=== PATIENT | female | born 1980 | race African-American/Black ===

== ENCOUNTER 2017-02-15 17:14 | Emergency (ER) | payer BC ==
--- NOTE | 2017-02-15 17:31 | ER Document Report ---
ED Medical Screen (RME) - General Stated Complaint: CHEST PAIN Mode of Arrival: Ambulatory Information source: Patient Notes: Patient reports chest pain that started around 3 PM today. Patient states pain does radiate left-sided pain. Patient denies any nausea, vomiting, or shortness of breath. No cough or cold symptoms. Patient states earlier today she did take nitroglycerin and it did help her chest pain symptoms. hx: Hypertension I have greeted and performed a rapid initial assessment of this patient. A comprehensive ED assessment and evaluation of the patient, analysis of test results and completion of the medical decision making process will be conducted by additional ED providers. TRAVEL OUTSIDE OF THE [place] IN LAST 30 DAYS: No - Related Data Allergies/Adverse Reactions: No Known Allergies Allergy (Verified 02/15/17 17:28) Past Medical History - Past Medical History Cardiac Medical History: Reports: Hx Hypertension - Immunizations Hx Diphtheria, Pertussis, Tetanus Vaccination: Yes Physical Exam - Cardiovascular Rhythm: Regular Heart sounds: S1 appreciated, S2 appreciated Murmur: No
[2017-02-15 17:53] LABS: ABSOLUTE EOSINOPHILS # (AUTO) 0.2 10^3/uL (0.0-0.6); ABSOLUTE LYMPHOCYTES (AUTO) 2.9 10^3/uL (0.5-4.7); ABSOLUTE MONOCYTES (AUTO) 0.5 10^3/uL (0.1-1.4); ABSOLUTE NEUT (AUTO) 2.1 10^3/uL (1.7-8.2); BASOPHILS % (AUTO) 0.4 % (0-2); EOSINOPHILS % (AUTO) 3.1 % (0-6); HEMATOCRIT 37.4 % (36.0-47.0); HEMOGLOBIN 12.3 g/dL (12.0-15.5); HGB HCT DIFFERENCE -0.5; LYMPHOCYTES % (AUTO) 51.7 % (13-45); MEAN CORPUSCULAR HEMOGLOBIN 29.4 pg (27.0-33.4); MEAN CORPUSCULAR HGB CONC 32.8 g/dL (32.0-36.0); MEAN CORPUSCULAR VOLUME 90 fl (80-97); MONOCYTES % (AUTO) 8.1 % (3-13); RED BLOOD COUNT 4.18 10^6/uL (3.72-5.28); RED CELL DISTRIBUTION WIDTH 13.5 % (11.5-14.0); SEGMENTED NEUTROPHILS % (AUTO) 36.7 % (42-78); WHITE BLOOD COUNT 5.6 10^3/uL (4.0-10.5)
[2017-02-15 18:10] LABS: ALANINE AMINOTRANSFERASE 28 U/L (9-52); ALBUMIN 4.4 g/dL (3.5-5.0); ALKALINE PHOSPHATASE 70 U/L (38-126); ANION GAP 12 (5-19); ASPARTATE AMINO TRANSFERASE 27 U/L (14-36); BILIRUBIN,TOTAL 0.4 mg/dL (0.2-1.3); BLOOD UREA NITROGEN 17 mg/dL (7-20); CALCIUM 10.3 mg/dL (8.4-10.2); CARBON DIOXIDE 28 mmol/L (22-30); CHLORIDE 104 mmol/L (98-107); CREATINE KINASE 176 U/L (30-135); CREATININE RESULT 1.02 mg/dL (0.52-1.25); GLUCOSE 92 mg/dL (75-110); LIPASE 52.2 U/L (23-300); MAGNESIUM 2.1 mg/dL (1.6-2.3); POTASSIUM 4.3 mmol/L (3.6-5.0); SODIUM 144.3 mmol/L (137-145); TOTAL PROTEIN 7.2 g/dL (6.3-8.2)
[2017-02-15 18:20] LABS: CREATINE KINASE MB 0.66 ng/mL (<4.55)
[2017-02-15 18:23] LABS: TROPONIN I < 0.012 ng/mL
--- NOTE | 2017-02-15 19:11 | EKG REPORT ---
SEVERITY:- NORMAL ECG - SINUS RHYTHM : Confirmed by: Ruddy Appiah MD 15-Feb-2017 19:11:01
--- NOTE | 2017-02-15 19:29 | ER Document Report ---
ED Cardiac - General Chief Complaint: Chest Pain > 30 Stated Complaint: CHEST PAIN Time seen by provider: 19:25 Mode of Arrival: Ambulatory Notes: Patient is a 36-year-old female that comes emergency department for chief complaint of chest pain on the left side of her chest which was mild and felt like a pressure that started about 3 PM, she states it seemed to go across the left side of her chest. She denies nausea, vomiting, cough, shortness of breath , denies fever or recent illness. She states she has been having chest pains intermittently for several weeks, states that she got at the other day for running, she states at that point she was seen by her primary care provider, had an EKG, given nitroglycerin, told comes emergency department if she had chest pain again. She has not had a stress test or echocardiogram. She has past medical history of hypertension, takes Norvasc, denies smoking, denies any other medical history, denies family history of cardiac disease. She states she did take nitroglycerin, states afterwards she felt improved and now she has no complaints. Patient already took 4 baby aspirin. TRAVEL OUTSIDE OF THE [place] IN LAST 30 DAYS: No - Related Data Allergies/Adverse Reactions: No Known Allergies Allergy (Verified 02/15/17 17:28) Past Medical History - General Information source: Patient - Social History Smoking Status: Never Smoker Chew tobacco use (# tins/day): No Frequency of alcohol use: Rare Drug Abuse: None Lives with: Family Family History: Reviewed & Not Pertinent Patient has suicidal ideation: No Patient has homicidal ideation: No - Past Medical History Cardiac Medical History: Reports: Hx Hypertension Renal/ Medical History: Denies: Hx Peritoneal Dialysis Surgical Hx: Negative - Immunizations Hx Diphtheria, Pertussis, Tetanus Vaccination: Yes Review of Systems - Review of Systems Constitutional: No symptoms reported EENT: No symptoms reported Cardiovascular: See HPI Respiratory: No symptoms reported Gastrointestinal: No symptoms reported Genitourinary: No symptoms reported Female Genitourinary: No symptoms reported Musculoskeletal: See HPI Skin: No symptoms reported Hematologic/Lymphatic: No symptoms reported Neurological/Psychological: No symptoms reported Physical Exam - Vital signs Vitals: Resp Pulse Ox 25 H 100 02/15/17 19:21 02/15/17 19:21 Interpretation: Normal - General General appearance: Appears well In distress: None - alert, conversational, very well appearing - HEENT Head: Normocephalic, Atraumatic Eyes: Normal Conjunctiva: Normal Extraocular movements intact: Yes Eyelashes: Normal Pupils: PERRL Sinus: Normal Nasal: Normal Mouth/Lips: Normal Mucous membranes: Normal Pharynx: Normal Neck: Normal - Respiratory Respiratory status: No respiratory distress Chest status: Tender - There is reproducible mid anterior chest wall tenderness on the left side only, otherwise no abnormalities noted Breath sounds: Normal. No: Decreased air movement, Wheezing Chest palpation: Normal - Cardiovascular Rhythm: Regular. No: Tachycardia Heart sounds: Normal auscultation, S1 appreciated, S2 appreciated Murmur: No - Abdominal Inspection: Normal Distension: No distension Bowel sounds: Normal Tenderness: Nontender. No: Tender Organomegaly: No organomegaly - Back Back: Normal, Nontender - Extremities General upper extremity: Normal inspection, Nontender, Normal color, Normal ROM , Normal temperature General lower extremity: Normal inspection, Nontender, Normal color, Normal ROM , Normal temperature, Normal weight bearing. No: Jorge Luis's sign - Neurological Neuro grossly intact: Yes Cognition: Normal Orientation: AAOx4 Marifer Coma Scale Eye Opening: Spontaneous Marifer Coma Scale Verbal: Oriented Marifer Coma Scale Motor: Obeys Commands Marifer Coma Scale Total: 15 Speech: Normal Motor strength normal: LUE, RUE, LLE, RLE Sensory: Normal - Psychological Associated symptoms: Normal affect, Normal mood - Skin Skin Temperature: Warm Skin Moisture: Dry Skin Color: Normal Course - Re-evaluation Re-evalutation: Patient with left-sided chest wall pain on examination which patient stopped reporting was bothering her but still is reproducible on examination. Patient had taken 4 baby aspirins. EKG showing sinus rhythm with flattened T waves in lead III, no changes from prior EKG, no ST segment changes or T-wave inversions in consecutive leads. Chest x-ray unremarkable, CBC, chemistry unremarkable except for very mildly elevated CK. 2 sets of negative troponins. Patient's heart score is 1, patient has history of hypertension, no smoking, family history, or other abnormalities. Patient is also very young at the age of 36. Patient in addition to this are he has a stress test scheduled for the coming Sunday which is in about 3 days. Discussed all findings with patient in detail, recommended patient follow-up with her stress test planned and to return for any concerns concerning symptoms which were discussed. Patient states understanding and agreement. - Vital Signs Vital signs: Temp Pulse Resp BP Pulse Ox 18 116/74 98 02/15/17 23:01 02/15/17 23:01 02/15/17 23:01 - Laboratory Result Diagrams: 02/15/17 17:35 02/15/17 17:35 Laboratory results interpreted by me: 02/15/17 02/15/17 17:35 17:35 Seg Neutrophils % 36.7 L Lymphocytes % 51.7 H Calcium 10.3 H Creatine Kinase 176 H Discharge - Discharge Clinical Impression: Chest wall pain Chest pain Qualifiers: Chest pain type: unspecified Qualified Code(s): R07.9 - Chest pain, unspecified Condition: Stable Disposition: HOME, SELF-CARE Additional Instructions: Your workup today is normal. At this time it appears the chest pain is from your chest wall, however please follow-up for your stress test and additional evaluation by cardiology as planned. Apply heat to your chest wall, consider [id number] anti-inflammatories. Return to the emergency department for any concerning or worsening symptoms. Forms: Return to Work Referrals: LOKESH NICHOLAS MD [Primary Care Provider] - Follow up as needed
[2017-02-15 23:12] VITALS: BP 116/74
== END 2017-02-15 23:19 | disposition home or self-care (01) ==
LOC: ER 17:14
DX: R07.89 Other chest pain (principal); I10 Essential (primary) hypertension; Z79.899 Other long term (current) drug therapy
CPT/HCPCS: 36415; 71020; 80053; 82550; 82553; 83690; 83735; 84484; 84703; 85025; 93005; 93010; 99285

== ENCOUNTER → 2017-02-19 | Outpatient (CLI) | payer BC ==
[~2017-02-19] MED LIST: NITROGLYCERIN 0.4 MG/TAB 25 TAB/BOTTLE ONE
--- NOTE | 2017-02-19 22:09 | DRAGON STRESS TEST REPORT ---
Exercise EKG treadmill stress test. Data procedure: 02/19/2017 Ordering Provider: Dr. Prajapati. Indication: Chest pain Coronary risk factors:. Hypertension. Significant physical findings prior to stress testing show a blood pressure of 122/81 and a heart rate of 76 beat per minute. Auscultation of the heart shows normal S1 and S2.NoS3 or S4 gallops. Systolic murmur in the left sternal border and apex. Lungs are clear to auscultation and percussion. Resting 12-lead EKG:. Sinus Rhythm. Within Normal Limits. Procedure: The patient was excised on a standard Leandro protocol. . The patient walked a total of 7 minutes and 00 seconds on this protocol and reached a 157 peak heart rate of beats per minute, which is of 86% of maximum predicted heart rate for age. This is at a workload of 8 METS. The test was stopped because of chest pain/discomfort, and EKG changes of ischemia. The patient described symptoms of chest pain/discomfort beginning 4 minutes and 6 seconds at a heart rate of 134 into exercise. This was on a scale of 1/5. This increased at 4 minutes and 30 seconds and a heart rate of 142 on a scale of 2/5 ., and the chest discomfort persisted at peak exercise, and ipatient had a discomfort of 2/5 scale. This persisted into recovery for about 2 minutes and 13 seconds. This discomfort totally resolved within a few minutes of 0.4 mg of one sublingual nitroglycerin tablet. Note that the patient had ST segment changes also. Exercise EKG's show:. There was 1-[address] segment depression along with the patient's chest pain/pressure/discomfort in multiple leads, which resolved after 1.5 minutes of recovery stage, but the patient continued to have these symptoms as mentioned above. The ST segment depression, and chest symptoms completely resolved with one sublingual nitroglycerin Arrhythmias seen:None. The blood pressure response was normal At peak exercise the blood pressure was 161/74 millimeters of Hg. The double product was 25.2 K. Summary of findings and interpretation: 1. The patient's clinical symptoms chest pain or chest discomfort symptoms reproduced. 2. There is 1-[address] segment depression which persisted for at least 1.5 minutes in the recovery with, EKG evidence of ischemia in the form of ST segment depression. 3. Normal blood pressure response. 4. No arrhythmias seen. 5. Good exercise tolerance, good aerobic capacity. Diagnostic treadmill stress test positive for ischemia by EKG criteria. Recommendations: 1.Recommend treatment with aspirin, beta blockers, nitrates, and statins if no contraindication 2.strongly recommend cardia catheterization to make sure the patient has no significant coronary artery disease. 3.Aggressive risk factor modification, and treatment of underlying co- morbidities. MTDD
== END ==
LOC: SP 08:37
PROVIDERS: ATTEND Nurse Practitioner Psychiatric/Mental Health
DX: R07.9 Chest pain, unspecified (principal)
CPT/HCPCS: 93017

== ENCOUNTER → 2017-04-25 | Outpatient (CLI) | payer BC ==
[2017-04-25 08:12] LABS: ABSOLUTE EOSINOPHILS # (AUTO) 0.1 10^3/uL (0.0-0.6); ABSOLUTE LYMPHOCYTES (AUTO) 1.9 10^3/uL (0.5-4.7); ABSOLUTE MONOCYTES (AUTO) 0.4 10^3/uL (0.1-1.4); BASOPHILS % (AUTO) 0.7 % (0-2); EOSINOPHILS % (AUTO) 2.2 % (0-6); HEMATOCRIT 37.1 % (36.0-47.0); HGB HCT DIFFERENCE -1.1; LYMPHOCYTES % (AUTO) 42.9 % (13-45); MEAN CORPUSCULAR HEMOGLOBIN 29.6 pg (27.0-33.4); MEAN CORPUSCULAR HGB CONC 32.5 g/dL (32.0-36.0); MEAN CORPUSCULAR VOLUME 91 fl (80-97); MONOCYTES % (AUTO) 9.1 % (3-13); RED BLOOD COUNT 4.08 10^6/uL (3.72-5.28); RED CELL DISTRIBUTION WIDTH 13.7 % (11.5-14.0); SEGMENTED NEUTROPHILS % (AUTO) 45.1 % (42-78); WHITE BLOOD COUNT 4.4 10^3/uL (4.0-10.5)
== END ==
LOC: LAB 08:01
PROVIDERS: ATTEND Internal Medicine Geriatric Medicine
DX: I10 Essential (primary) hypertension (principal)
CPT/HCPCS: 36415; 85025

== ENCOUNTER 2017-12-31 09:23 | Emergency (ER) | payer BC ==
[2017-12-31] MEDS ORDERED: ASPIRIN 325 MG TABLET PO ONE (09:51)
--- NOTE | 2017-12-31 09:52 | EKG REPORT ---
SEVERITY:- NORMAL ECG - SINUS RHYTHM : Confirmed by: Shanell Breen 31-Dec-2017 09:51:39
--- NOTE | 2017-12-31 09:52 | ER Document Report ---
ED Medical Screen (RME) - General Chief Complaint: Chest Pain Stated Complaint: CHEST PAIN Time Seen by Provider: 12/31/17 09:51 Notes: Patient presents with intermittent chest pain for the last several days. She states one year ago she had a cardiac cath and everything was "clean". She states she has had no significant cough or shortness of breath. She has had some radiation of the pain to her left arm and her jaw. She states she took nitro yesterday and this made the pain go away but she has not taken any nitroglycerin today. She has not taken aspirin yet today. TRAVEL OUTSIDE OF THE [place] IN LAST 30 DAYS: No - Related Data Allergies/Adverse Reactions: No Known Allergies Allergy (Verified 02/15/17 17:28) Past Medical History - Social History Frequency of alcohol use: None Drug Abuse: None - Past Medical History Cardiac Medical History: Reports: Hx Hypertension Pulmonary Medical History: Reports: Hx Asthma - exercise induced Renal/ Medical History: Denies: Hx Peritoneal Dialysis - Immunizations Hx Diphtheria, Pertussis, Tetanus Vaccination: Yes Physical Exam - Vital signs Vitals: Temp Pulse Resp BP Pulse Ox 97.7 F 72 18 133/92 H 100 12/31/17 09:41 12/31/17 09:41 12/31/17 09:41 12/31/17 09:41 12/31/17 09:41 Course - Vital Signs Vital signs: Temp Pulse Resp BP Pulse Ox 97.7 F 72 18 133/92 H 100 12/31/17 09:41 12/31/17 09:41 12/31/17 09:41 12/31/17 09:41 12/31/17 09:41
[2017-12-31] MEDS: NITROGLYCERIN 0.4 MG/TAB 25 TAB/BOTTLE SL PRN ×2 (10:08→10:19)
--- NOTE | 2017-12-31 10:17 | ER Document Report ---
ED Cardiac - General Chief Complaint: Chest Pain Stated Complaint: CHEST PAIN Time Seen by Provider: 12/31/17 09:51 TRAVEL OUTSIDE OF THE [place] IN LAST 30 DAYS: No - HPI Patient complains to provider of: Chest pain - Chest pain intermittent for last several days. With radiation to her left arm. Patient has history of cardiac catheterization that was "clean" last year. Denies all other associated symptoms. - Related Data Allergies/Adverse Reactions: No Known Allergies Allergy (Verified 02/15/17 17:28) Past Medical History - Social History Smoking Status: Never Smoker Frequency of alcohol use: None Drug Abuse: None Family History: Reviewed & Not Pertinent Patient has suicidal ideation: No Patient has homicidal ideation: No - Past Medical History Cardiac Medical History: Reports: Hx Hypertension Pulmonary Medical History: Reports: Hx Asthma - exercise induced Renal/ Medical History: Denies: Hx Peritoneal Dialysis - Immunizations Hx Diphtheria, Pertussis, Tetanus Vaccination: Yes Review of Systems - Review of Systems Constitutional: No symptoms reported EENT: No symptoms reported Cardiovascular: Chest pain Respiratory: No symptoms reported Gastrointestinal: No symptoms reported Genitourinary: No symptoms reported Female Genitourinary: No symptoms reported Musculoskeletal: No symptoms reported Skin: No symptoms reported Hematologic/Lymphatic: No symptoms reported Neurological/Psychological: No symptoms reported Physical Exam - Vital signs Vitals: Temp Pulse Resp BP Pulse Ox 97.7 F 72 18 133/92 H 100 12/31/17 09:41 12/31/17 09:41 12/31/17 09:41 12/31/17 09:41 12/31/17 09:41 Interpretation: Normal - General General appearance: Appears well, Alert - HEENT Head: Normocephalic, Atraumatic Eyes: Normal Pupils: PERRL - Respiratory Respiratory status: No respiratory distress Chest status: Nontender Breath sounds: Normal Chest palpation: Normal - Cardiovascular Rhythm: Regular Heart sounds: Normal auscultation Murmur: No - Abdominal Inspection: Normal Distension: No distension Bowel sounds: Normal Tenderness: Nontender Organomegaly: No organomegaly - Back Back: Normal, Nontender - Extremities General upper extremity: Normal inspection, Nontender, Normal color, Normal ROM , Normal temperature General lower extremity: Normal inspection, Nontender, Normal color, Normal ROM , Normal temperature, Normal weight bearing. No: Jorge Luis's sign - Neurological Neuro grossly intact: Yes Cognition: Normal Orientation: AAOx4 Marifer Coma Scale Eye Opening: Spontaneous Marifer Coma Scale Verbal: Oriented Marifer Coma Scale Motor: Obeys Commands Marifer Coma Scale Total: 15 Speech: Normal Motor strength normal: LUE, RUE, LLE, RLE Sensory: Normal - Psychological Associated symptoms: Normal affect, Normal mood - Skin Skin Temperature: Warm Skin Moisture: Dry Skin Color: Normal Course - Re-evaluation Re-evalutation: 12/31/17 11:05 Well-appearing female in no acute distress. Chest pain. Will February 2017 patient had extensive cardiac workup including cardiac catheterization, stress test. All were negative at that time. 12/31/17 11:55 Well-appearing female presents negative cardiac workup in the department. Will give referral to crisis counselor. Return if anything changes - Vital Signs Vital signs: Temp Pulse Resp BP Pulse Ox 97.7 F 72 13 128/87 H 100 12/31/17 09:41 12/31/17 09:41 12/31/17 10:46 12/31/17 10:46 12/31/17 10:46 - Laboratory Result Diagrams: 12/31/17 10:18 12/31/17 10:18 Laboratory results interpreted by me: 12/31/17 10:18 WBC 3.7 L - EKG Interpretation by Me Additional EKG results interpreted by me: 12/31/17 10:17 Normal sinus rhythm, 69 bpm, normal IL, normal QRS, no ST elevations or depressions. Discharge - Discharge Clinical Impression: Chest pain Qualifiers: Chest pain type: other chest pain Qualified Code(s): R07.89 - Other chest pain ; R07.8 - Other chest pain Condition: Stable Disposition: HOME, SELF-CARE Instructions: Chest Pain of Unclear Cause ([facility]) Referrals: LOKESH NICHOLAS MD [Primary Care Provider] - Follow up as needed ANGEL ORTIZ MD [ACTIVE STAFF] - Follow up as needed
[2017-12-31 10:46] LABS: ABSOLUTE EOSINOPHILS # (AUTO) 0.1 10^3/uL (0.0-0.6); ABSOLUTE LYMPHOCYTES (AUTO) 1.6 10^3/uL (0.5-4.7); ABSOLUTE MONOCYTES (AUTO) 0.3 10^3/uL (0.1-1.4); ABSOLUTE NEUT (AUTO) 1.8 10^3/uL (1.7-8.2); BASOPHILS % (AUTO) 0.5 % (0-2); EOSINOPHILS % (AUTO) 1.8 % (0-6); HEMATOCRIT 37.9 % (36.0-47.0); HEMOGLOBIN 12.6 g/dL (12.0-15.5); LYMPHOCYTES % (AUTO) 42.2 % (13-45); MEAN CORPUSCULAR HEMOGLOBIN 29.9 pg (27.0-33.4); MEAN CORPUSCULAR HGB CONC 33.2 g/dL (32.0-36.0); MEAN CORPUSCULAR VOLUME 90 fl (80-97); MONOCYTES % (AUTO) 7.1 % (3-13); PLATELET COUNT 197 10^3/uL (150-450); RED BLOOD COUNT 4.21 10^6/uL (3.72-5.28); RED CELL DISTRIBUTION WIDTH 13.3 % (11.5-14.0); SEGMENTED NEUTROPHILS % (AUTO) 48.4 % (42-78); TOTAL CELLS COUNTED % (AUTO) 100 %; WHITE BLOOD COUNT 3.7 10^3/uL (4.0-10.5)
[2017-12-31 11:10] LABS: ALANINE AMINOTRANSFERASE 27 U/L (9-52); ALBUMIN 4.4 g/dL (3.5-5.0); ALKALINE PHOSPHATASE 70 U/L (38-126); ANION GAP 9 (5-19); ASPARTATE AMINO TRANSFERASE 29 U/L (14-36); BILIRUBIN,DIRECT 0.3 mg/dL (0.0-0.4); BILIRUBIN,TOTAL 0.5 mg/dL (0.2-1.3); BLOOD UREA NITROGEN 14 mg/dL (7-20); CALCIUM 10.2 mg/dL (8.4-10.2); CARBON DIOXIDE 28 mmol/L (22-30); CHLORIDE 105 mmol/L (98-107); GLUCOSE 91 mg/dL (75-110); POTASSIUM 3.9 mmol/L (3.6-5.0); SODIUM 142.3 mmol/L (137-145); TOTAL PROTEIN 7.2 g/dL (6.3-8.2)
[2017-12-31 12:08] VITALS: BP 143/87
== END 2017-12-31 12:08 | disposition home or self-care (01) ==
LOC: ER 09:23
DX: R07.89 Other chest pain (principal); M79.602 Pain in left arm
CPT/HCPCS: 36415; 80053; 84484; 85025; 93005; 93010; 99285

== ENCOUNTER → 2018-05-22 | Outpatient (CLI) | payer BC ==
--- NOTE | 2018-05-22 15:34 | WOMENS IMAGING REPORT ---
EXAM DESCRIPTION: 3D DIAG MAMMO BILAT NO CHG; U/S BREAST UNILAT LIMITED COMPLETED DATE/TIME: 05/22/2018 9:43 am; 05/22/2018 10:10 am REASON FOR STUDY: UNSPECIFIED LUMP; N63.21; BREAST LUMP;N63 N63.21 UNSPECIFIED LUMP IN THE LEFT TERESO AST, UPPER OUTER QUAD; N63.0 UNSPECIFIED LUMP IN UNSPECIFIED BREAST COMPARISON: 10/03/2012 TECHNIQUE: Standard craniocaudal and mediolateral oblique views of each breast recorded using digita l acquisition and breast tomosynthesis. Additional cone compression tomosynthesis in the left breast mediolateral orientation. Left breast ultrasound was also performed. LIMITATIONS: None. FINDINGS: RIGHT BREAST MASSES: No suspicious masses. CALCIFICATIONS: No new or suspicious calcifications. ARCHITECTURAL DISTORTION: None. DEVELOPING DENSITY: None. ASYMMETRY: None noted. OTHER: No other significant findings. LEFT BREAST MASSES: No suspicious masses. CALCIFICATIONS: No new or suspicious calcifications. ARCHITECTURAL DISTORTION: None. DEVELOPING DENSITY: None. ASYMMETRY: None noted. OTHER: No other significant finding. Read with the assistance of CAD: .[facility] - R2 Cenova Version 1.3 .[facility] Imaging - R2 Cenova Version 1.3 .[facility] Imaging - R2 Cenova Version 2.4 .[facility] - R2 Cenova Version 2.4 .[facility] - R2 Adult Psychiatrist Version 9.2 Left breast ultrasound: Ultrasound was performed in the area of palpable tender abnormality in the left breast 1 to 2 o'clock position far laterally. In this area, a thrombosed superficial chest wall varicosity is present, li jon indicating Mondor's disease. Also at left breast ultrasound in the upper outer quadrant at the 1 to 2 o'clock position, a 2 x 1.1 x 0.8 cm breast cyst is present. In the left breast laterally at the 3 o'clock position, a 1.2 x 0.6 x 1.9 cm cyst is present. IMPRESSION: No mammographic evidence for malignancy right breast. No mammographic or sonographic evidence for malignancy left breast. 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 BREAST DENSITY: c. The breasts are heterogeneously dense, which may obscure small masses. BIRAD: 2 Benign findings. RECOMMENDATION: RECOMMENDED FOLLOW UP: Clinical follow-up for left breast/chest wall pain. Otherwis e, please continue yearly bilateral screening tomosynthesis in April 2019. SPECIFIC INTERVENTION/IMAGING/CONSULTATION RECOMMENDED:No additional intervention/ imaging/consultati on needed at this time. COMMUNICATION:Patient notified by letter COMMENT: The patient has been notified of the results by letter per SA requirements. Additional no tification policies are in place for contacting patient with suspicious or incomplete findings. Quality ID #[id number]: The [employer] recommends an annual screening mammogram for women aged 40 years or over. This facility utilizes a reminder system to ensure that all patients receive reminder letters, and/or direct phone calls for appointments. This includes reminders for routine scr eening mammograms, diagnostic mammograms, or other Breast Imaging Interventions when appropriate. Th is patient will be placed in the appropriate reminder system. The [employer] (ACR) has developed recommendations for screening MRI of the breast s in certain patient populations, to be used in conjunction with mammography. Breast MRI surveillanc e may be appropriate for women with more than 20% lifetime risk of developing breast cancer as deter mined by genetic testing, significant family history of the disease, or history of mantle radiation f or Hodgkins Disease. ACR Practice Guidelines 2008. DBT Technology DBT is a type of tomographic mammography. With conventional mammography, overlapping breast tissue ma y make lesions difficult to detect, even with good compression. DBT uses an x-ray tube that rotates a round the breast, taking images at different angles. These images are then combined to create thin sl ices of the breast that the radiologist can view as a 3D reconstruction. The [employer] unit can perform full-field digital mammograms (2D imaging); or DBT (3D imaging); or both, in a combination mode that quickly performs both the mammogram and the tomosynthesis scan while the breast is still compressed. PQRS 6045F: Fluoroscopic imaging is not utilized for breast tomosynthesis. TECHNICAL DOCUMENTATION: FINDING NUMBER: (1) ASSESSMENT: (1) JOB ID: [id number] [employer]- All Rights Reserved Reading location - IP/workstation name: [email or web address]
== END ==
LOC: WI 07:03
PROVIDERS: ATTEND Obstetrics & Gynecology
DX: N60.02 Solitary cyst of left breast (principal)
CPT/HCPCS: 76642

== ENCOUNTER → 2018-11-04 | Outpatient (CLI) | payer BC ==
[2018-11-04 08:51] LABS: CHOLESTEROL 146.16 mg/dL (0-200); TRIGLYCERIDES 33 mg/dL (<150)
[2018-11-04 09:02] LABS: DIRECT LDL 74 mg/dL (<100)
== END ==
LOC: LAB 07:49
PROVIDERS: ATTEND Internal Medicine Geriatric Medicine
DX: I10 Essential (primary) hypertension (principal)
CPT/HCPCS: 36415; 80061

== ENCOUNTER 2019-03-03 09:02 | Day surgery (SDC) | payer BC ==
[~2019-03-03 09:02] MED LIST changes: -NITROGLYCERIN 0.4 MG/TAB 25 TAB/BOTTLE ONE; +PROPOFOL INJ 200 MG/20 ML VIAL IV ONE
[2019-03-03 10:40] VITALS: BP 130/72
[2019-03-03] MEDS ORDERED: PROPOFOL INJ 200 MG/20 ML VIAL IV ONE (11:47)
--- NOTE | 2019-03-03 12:43 | Operative Report ---
Operative Report DATE OF SURGERY: 03/03/19 Operative Report: The risks, benefits and alternatives of the procedure including the risk of bleeding, perforation requiring surgery have been explained to the patient in detail and informed consent has been obtained. The patient is placed in the left, lateral decubital position. Timeout was called. Propofol medication is administered. A rectal examination is done which did not reveal any masses, tears or fissures. An Olympus videoscope was introduced into the patient's rectum. The scope was then carefully advanced all the way to the cecum. The cecum was identified by the usual anatomical landmarks including the ileocecal valve as well as the appendiceal office. Photodocumentation is obtained. The scope was then sequentially pulled back via the various segments of the colon including the ascending colon, hepatic flexure, transverse colon, splenic flexure, descending colon and finally into the rectosigmoid portions of the colon. Retroflexion maneuver was performed. PREOPERATIVE DIAGNOSIS: Colorectal cancer screening POSTOPERATIVE DIAGNOSIS: Normal screening colonoscopy OPERATION: Diagnostic colonoscopy SURGEON: DANIELLE MUNSON ANESTHESIA: LMAC TISSUE REMOVED OR ALTERED: None. COMPLICATIONS: None. ESTIMATED BLOOD LOSS: None. INTRAOPERATIVE FINDINGS: As noted above. PROCEDURE: Patient tolerated the procedure well. No immediate postprocedure complications are noted. Patient discharged in good condition. Discharge date 03/03/2019. Discharge diet: Regular. Discharge activity: Regular. 2-3-week follow-up to discuss findings. Patient is instructed to call the office or proceed to the emergency room should there be any further problems or questions. 10-year surveillance colonoscopy.
== END 2019-03-03 10:40 | disposition home or self-care (01) ==
LOC: END 09:02
PROVIDERS: ATTEND Internal Medicine Gastroenterology
DX: Z12.11 Encounter for screening for malignant neoplasm of colon (principal); I10 Essential (primary) hypertension; Z79.899 Other long term (current) drug therapy; Z83.71 Family history of colonic polyps
CPT/HCPCS: 45378; J2704; 812

== ENCOUNTER → 2019-04-29 | Outpatient (CLI) | payer BC ==
[2019-04-29 09:52] LABS: FREE T3 3.78 pg/mL (2.77-5.27); FREE T4 (FREE THYROXINE) 0.78 ng/dL (0.78-2.19)
[2019-04-29 10:06] LABS: THYROID STIMULATING HORMONE 0.46 uIU/mL (0.47-4.68)
== END ==
LOC: LAB 08:57
PROVIDERS: ATTEND Internal Medicine Geriatric Medicine
DX: E03.9 Hypothyroidism, unspecified (principal)
CPT/HCPCS: 36415; 84436; 84439; 84443; 84481; 84482; 86376

== ENCOUNTER → 2019-05-05 | Outpatient (CLI) | payer BC ==
[2019-05-05 08:09] LABS: ABSOLUTE EOSINOPHILS # (AUTO) 0.1 10^3/uL (0.0-0.6); ABSOLUTE LYMPHOCYTES (AUTO) 1.5 10^3/uL (0.5-4.7); ABSOLUTE MONOCYTES (AUTO) 0.3 10^3/uL (0.1-1.4); BASOPHILS % (AUTO) 0.5 % (0-2); EOSINOPHILS % (AUTO) 1.8 % (0-6); HEMATOCRIT 34.7 % (36.0-47.0); HEMOGLOBIN 11.8 g/dL (12.0-15.5); LYMPHOCYTES % (AUTO) 38.3 % (13-45); MEAN CORPUSCULAR HEMOGLOBIN 30.5 pg (27.0-33.4); MEAN CORPUSCULAR VOLUME 90 fl (80-97); MONOCYTES % (AUTO) 6.9 % (3-13); PLATELET COUNT 191 10^3/uL (150-450); RED BLOOD COUNT 3.86 10^6/uL (3.72-5.28); RED CELL DISTRIBUTION WIDTH 13.5 % (11.5-14.0); SEGMENTED NEUTROPHILS % (AUTO) 52.5 % (42-78); TOTAL CELLS COUNTED % (AUTO) 100 %; WHITE BLOOD COUNT 3.8 10^3/uL (4.0-10.5)
[2019-05-05 09:16] LABS: ALANINE AMINOTRANSFERASE 23 U/L (9-52); ALBUMIN 3.8 g/dL (3.5-5.0); ALKALINE PHOSPHATASE 63 U/L (38-126); ANION GAP 8 (5-19); ASPARTATE AMINO TRANSFERASE 27 U/L (14-36); BILIRUBIN,DIRECT 0.2 mg/dL (0.0-0.4); BILIRUBIN,TOTAL 0.3 mg/dL (0.2-1.3); BLOOD UREA NITROGEN 18 mg/dL (7-20); CALCIUM 9.7 mg/dL (8.4-10.2); CARBON DIOXIDE 26 mmol/L (22-30); CHLORIDE 106 mmol/L (98-107); CHOLESTEROL 134.22 mg/dL (0-200); GLUCOSE 86 mg/dL (75-110); IRON(TIBC) 82.5 ug/dL (37-170); POTASSIUM 4.1 mmol/L (3.6-5.0); SODIUM 140.1 mmol/L (137-145); TOTAL PROTEIN 6.4 g/dL (6.3-8.2); TRIGLYCERIDES 39 mg/dL (<150)
[2019-05-05 09:28] LABS: DIRECT LDL 70 mg/dL (<100)
== END ==
LOC: LAB 07:38
PROVIDERS: ATTEND Internal Medicine Geriatric Medicine
DX: L65.9 Nonscarring hair loss, unspecified (principal); I10 Essential (primary) hypertension
CPT/HCPCS: 36415; 80053; 80061; 82306; 82728; 83540; 83550; 85025; 86592

== ENCOUNTER → 2019-07-03 | Outpatient (CLI) | payer BC ==
--- NOTE | 2019-07-03 16:38 | WOMENS IMAGING REPORT ---
EXAM DESCRIPTION: RIGHT DIAGNOSTIC MAMMO W/CAD; U/S BREAST UNILAT LIMITED COMPLETED DATE/TIME: 07/03/2019 8:44 am; 07/03/2019 9:29 am REASON FOR STUDY: R92.2; RT R92.2 R92.2 INCONCLUSIVE MAMMOGRAM COMPARISON: Multiple since 2011 EXAM PARAMETERS: Cone compression and compression magnification craniocaudal and 90 mediolateral i mages of the breast recorded with digital acquisition. Additional right whole breast 90 mediolatera l view. Right breast ultrasound was also performed. Read with the assistance of CAD. .[facility] - R2 Vision Mixer Version 9.2 LIMITATIONS: None. FINDINGS: BREAST LATERALITY: Right MASSES: Persistent mammographic nodule right breast 6 o'clock position about 6 mm in size. This was subsequently shown to represent a breast parenchymal cyst. CALCIFICATIONS: Scattered punctate calcifications are present over the right central breast without w orrisome features. ARCHITECTURAL DISTORTION: None. DEVELOPING DENSITY: None. ASYMMETRY: None noted. OTHER: No other significant findings. Right breast ultrasound: Ultrasound of the right breast demonstrates a 6 mm cyst at the deep 6 o'clock position along the infr amammary fold. This correlates with mammographic nodule described on 06/24/2019. Other benign cysts are identified, 7 mm retroareolar and 4 mm retroareolar, 2 cm 12 o'clock deep central right breast. IMPRESSION: No mammographic or sonographic evidence for malignancy right breast BREAST DENSITY: c. The breasts are heterogeneously dense, which may obscure small masses. BIRAD: ASSESSMENT: 2 Benign findings. RECOMMENDATION: RECOMMENDED FOLLOW UP: Please continue yearly bilateral screening mammography/tomosy nthesis in May/June 2020 SPECIFIC INTERVENTION/IMAGING/CONSULTATION RECOMMENDED:No additional intervention/ imaging/consultati on needed at this time. COMMUNICATION:Patient notified by letter COMMENT: The patient has been notified of the results by letter per MQSA requirements. Additional no tification policies are in place for contacting patient with suspicious or incomplete findings. Quality ID #225: The [employer] recommends an annual screening mammogram for women aged 40 years or over. This facility utilizes a reminder system to ensure that all patients receive reminder letters, and/or direct phone calls for appointments. This includes reminders for routine scr eening mammograms, diagnostic mammograms, or other Breast Imaging Interventions when appropriate. Th is patient will be placed in the appropriate reminder system. TECHNICAL DOCUMENTATION: FINDING NUMBER: (1) ASSESSMENT: (1) JOB ID: [id number] [employer]- All Rights Reserved Reading location - IP/workstation name: [email or web address]
--- NOTE | 2019-07-03 16:38 | WOMENS IMAGING REPORT ---
EXAM DESCRIPTION: RIGHT DIAGNOSTIC MAMMO W/CAD; U/S BREAST UNILAT LIMITED COMPLETED DATE/TIME: 07/03/2019 8:44 am; 07/03/2019 9:29 am REASON FOR STUDY: R92.2; RT R92.2 R92.2 INCONCLUSIVE MAMMOGRAM COMPARISON: Multiple since 2011 EXAM PARAMETERS: Cone compression and compression magnification craniocaudal and 90 mediolateral i mages of the breast recorded with digital acquisition. Additional right whole breast 90 mediolatera l view. Right breast ultrasound was also performed. Read with the assistance of CAD. .[facility] - R2 Senior Environmental Practice Leader Version 9.2 LIMITATIONS: None. FINDINGS: BREAST LATERALITY: Right MASSES: Persistent mammographic nodule right breast 6 o'clock position about 6 mm in size. This was subsequently shown to represent a breast parenchymal cyst. CALCIFICATIONS: Scattered punctate calcifications are present over the right central breast without w orrisome features. ARCHITECTURAL DISTORTION: None. DEVELOPING DENSITY: None. ASYMMETRY: None noted. OTHER: No other significant findings. Right breast ultrasound: Ultrasound of the right breast demonstrates a 6 mm cyst at the deep 6 o'clock position along the infr amammary fold. This correlates with mammographic nodule described on 06/24/2019. Other benign cysts are identified, 7 mm retroareolar and 4 mm retroareolar, 2 cm 12 o'clock deep central right breast. IMPRESSION: No mammographic or sonographic evidence for malignancy right breast BREAST DENSITY: c. The breasts are heterogeneously dense, which may obscure small masses. BIRAD: ASSESSMENT: 2 Benign findings. RECOMMENDATION: RECOMMENDED FOLLOW UP: Please continue yearly bilateral screening mammography/tomosy nthesis in May/June 2020 SPECIFIC INTERVENTION/IMAGING/CONSULTATION RECOMMENDED:No additional intervention/ imaging/consultati on needed at this time. COMMUNICATION:Patient notified by letter COMMENT: The patient has been notified of the results by letter per MQSA requirements. Additional no tification policies are in place for contacting patient with suspicious or incomplete findings. Quality ID #225: The [employer] recommends an annual screening mammogram for women aged 40 years or over. This facility utilizes a reminder system to ensure that all patients receive reminder letters, and/or direct phone calls for appointments. This includes reminders for routine scr eening mammograms, diagnostic mammograms, or other Breast Imaging Interventions when appropriate. Th is patient will be placed in the appropriate reminder system. TECHNICAL DOCUMENTATION: FINDING NUMBER: (1) ASSESSMENT: (1) JOB ID: [id number] [employer]- All Rights Reserved Reading location - IP/workstation name: [email or web address]
== END ==
LOC: WI 08:29
PROVIDERS: ATTEND Internal Medicine Geriatric Medicine
DX: N60.01 Solitary cyst of right breast (principal)
CPT/HCPCS: 76642

== ENCOUNTER → 2019-10-31 | Outpatient (CLI) | payer BC ==
[2019-10-31 08:26] LABS: ABSOLUTE EOSINOPHILS # (AUTO) 0.1 10^3/uL (0.0-0.6); ABSOLUTE LYMPHOCYTES (AUTO) 1.9 10^3/uL (0.5-4.7); ABSOLUTE MONOCYTES (AUTO) 0.3 10^3/uL (0.1-1.4); ABSOLUTE NEUT (AUTO) 1.9 10^3/uL (1.7-8.2); BASOPHILS % (AUTO) 0.6 % (0-2); EOSINOPHILS % (AUTO) 2.2 % (0-6); HEMATOCRIT 37.7 % (36.0-47.0); HEMOGLOBIN 12.7 g/dL (12.0-15.5); LYMPHOCYTES % (AUTO) 44.7 % (13-45); MEAN CORPUSCULAR HEMOGLOBIN 30.8 pg (27.0-33.4); MEAN CORPUSCULAR HGB CONC 33.8 g/dL (32.0-36.0); MEAN CORPUSCULAR VOLUME 91 fl (80-97); MONOCYTES % (AUTO) 6.9 % (3-13); PLATELET COUNT 167 10^3/uL (150-450); RED BLOOD COUNT 4.14 10^6/uL (3.72-5.28); RED CELL DISTRIBUTION WIDTH 13.3 % (11.5-14.0); SEGMENTED NEUTROPHILS % (AUTO) 45.6 % (42-78); TOTAL CELLS COUNTED % (AUTO) 100 %; WHITE BLOOD COUNT 4.2 10^3/uL (4.0-10.5)
[2019-10-31 09:06] LABS: ERYTHROCYTE SEDIMENTATION RATE 8 mm/hr (0-20); FREE T4 (FREE THYROXINE) 0.8 ng/dL (0.78-2.19)
[2019-10-31 09:20] LABS: THYROID STIMULATING HORMONE 0.35 uIU/mL (0.47-4.68)
[2019-10-31 09:59] LABS: C-REACTIVE PROTEIN < 5.0 mg/L (<10.0); FOLATE > 20.00 ng/mL (>2.76)
== END ==
LOC: LAB 08:02
PROVIDERS: ATTEND Internal Medicine Geriatric Medicine
DX: I10 Essential (primary) hypertension (principal); R20.2 Paresthesia of skin
CPT/HCPCS: 36415; 82607; 82746; 84439; 84443; 85025; 85652; 86140

== ENCOUNTER → 2020-03-16 | Outpatient (CLI) | payer BC ==
--- NOTE | 2020-03-16 11:05 | WOMENS IMAGING REPORT ---
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 Additional right breast 90 mediolateral mammogram and tomosynthesis. Right breast cone compression CC and MLO imaging in the right periareolar region. Right breast ultrasound was also performed. 03/16/2013 Read with the assistance of CAD: .[facility] Photographic Restorer Version 9.2 LIMITATIONS: None. FINDINGS: RIGHT BREAST MASSES: In the right retroareolar 7 to 8 o'clock position, a well-circumscribed low-density mammograp hic mass is present measuring about 1 cm in size. This was subsequently shown at ultrasound to repre sent a simple cyst. CALCIFICATIONS: No new or suspicious calcifications. ARCHITECTURAL DISTORTION: None. ASYMMETRY: None noted. OTHER: No other significant findings. LEFT BREAST MASSES: No suspicious masses. CALCIFICATIONS: No new or suspicious calcifications. ARCHITECTURAL DISTORTION: None. ASYMMETRY: None noted. OTHER: No other significant finding. Right breast ultrasound: Right whole breast ultrasound was performed. In the area of palpable abnormality right periareolar 7 to 8 o'clock position, a 10 mm simple cyst is present just deep to skin surface. In the right breas t 12 o'clock deep central breast, a 2 cm simple cyst is present. No masses. No dilated ducts. IMPRESSION: No mammographic or sonographic evidence for malignancy right breast No mammographic evidence for malignancy left breast. BREAST DENSITY: d. The breasts are extremely dense, which lowers the sensitivity of mammography. BIRAD: ASSESSMENT: 2 Benign findings. RECOMMENDATION: RECOMMENDED FOLLOW UP: Bilateral mammography/ tomosynthesis in February 2021 SPECIFIC INTERVENTION/IMAGING/CONSULTATION RECOMMENDED:No additional intervention/ imaging/consultati on needed at this time. COMMUNICATION:The negative/benign results were communicated to the patient. COMMENT: The patient has been notified of the results by letter per MQSA requirements. Additional no tification policies are in place for contacting patient with suspicious or incomplete findings. Quality ID #225: The [employer] recommends an annual screening mammogram for women aged 40 years or over. This facility utilizes a reminder system to ensure that all patients receive reminder letters, and/or direct phone calls for appointments. This includes reminders for routine scr eening mammograms, diagnostic mammograms, or other Breast Imaging Interventions when appropriate. Th is patient will be placed in the appropriate reminder system. TECHNICAL DOCUMENTATION: FINDING NUMBER: (1) ASSESSMENT: (1) JOB ID: [id number] 2010 [employer]- All Rights Reserved Reading location - IP/workstation name: [email or web address]
== END ==
LOC: WI 09:15
PROVIDERS: ATTEND Specialist
DX: N64.4 Mastodynia (principal)
CPT/HCPCS: 76642

== ENCOUNTER → 2020-05-20 | Outpatient (CLI) | payer BC ==
--- NOTE | 2020-05-20 09:29 | ER RDC ASSESSMENT REPORT ---
Intake - In the Last 14 days Have you traveled outside [place]?: No Have you been in close contact with someone CONFIRMED: Yes Worked in Healthcare?: Yes - Symptoms Subjective Fever([place] feverish): No Chills: No Muscule Aches: No Runny Nose: Yes Sore Throat: No Cough (New or worsening chronic cough): No Shortness of breath: Yes Nausea or Vomiting: No Headache: No Abdominal Pain: No Diarrhea(3 or more loose stools in last 24 hours): No - Do you have any of the following Chronic lung disease: Asthma or emphysema or COPD: Yes Chronic Lung Disease Comment: Asthma Cystic Fibrosis: No Diabetes: No High Blood Pressure: Yes Cardiovascular Disease: No Chronic Kidney Disease: No Chronic Liver Disease: No Chronic blood disorder like Sickle Cell Disease: No Weak immune system due to disease or medication: No Neurologic condition that limits movement: No Developmental delay - Moderate to Severe: No Recent (within past 2 weeks) or current : No Morbid Obesity (>100 pounds over ideal weight): No - Objective Vital Signs: 5'6" 155 lb Temperature: 97.8 F Pulse Rate: 100 Respiratory Rate: 18 Blood Pressure: 127/67 O2 Sat by Pulse Oximetry: 100 Objective: Given above, testing performed: Strep flu COVID Disposition: Home; Selfcare General - General Chief Complaint: Shortness Of Breath Time Seen by Provider: 05/20/20 09:30 Mode of Arrival: Ambulatory Information source: Patient - HPI Notes: 40-year-old female presents to [facility] clinic for COVID-19 testing. Patient works as a nurse enterprise account manager over at [employer] and has had potential exposure to COVID-19 positive individuals. Patient states she also recently dropped off groceries to her parents down in [place] who have had close contact with a sibling that tested positive for COVID-19. Patient does have significant history for asthma and hypertension; however, she states the asthma is typically only exercise-induced. She is reporting mild to moderate shortness of breath with exertion onset yesterday. No shortness of breath at rest or with ADLs. Associated symptoms include runny nose onset yesterday but she states this might be related to chronic rhinitis. Patient believes symptoms may be attributable to wearing for the mask for an extended period of time as well as narrowed nasal passages. She is denying any fever, chills, myalgia, sore throat, cough, abdominal pain, NVD, or headache. - Related Data Allergies/Adverse Reactions: No Known Allergies Allergy (Verified 03/03/19 09:09) Home Medications: Amlodipine, levothyroxine, Flonase, multivitamin, albuterol as needed Past Medical History - General Information source: Patient - Social History Smoking Status: Never Smoker Family History: Reviewed & Not Pertinent - Past Medical History Cardiac Medical History: Reports: Hx Hypertension Denies: Hx Coronary Artery Disease, Hx Heart Attack Pulmonary Medical History: Reports: Hx Asthma - exercise induced Denies: Hx Bronchitis, Hx COPD, Hx Pneumonia EENT Medical History: Reports: None Neurological Medical History: Reports: None. Denies: Hx Cerebrovascular Accident, Hx Seizures Endocrine Medical History: Reports: None Renal/ Medical History: Reports: None. Denies: Hx Peritoneal Dialysis Malignancy Medical History: Reports: None GI Medical History: Reports: None Musculoskeletal Medical History: Reports None, Denies Hx Arthritis Skin Medical History: Reports None Psychiatric Medical History: Reports: None Traumatic Medical History: Reports: None Infectious Medical History: Reports: None Past Surgical History: Reports: None Physical Exam - General General appearance: Appears well In distress: None Notes: PHYSICAL EXAMINATION: GENERAL: Well-appearing and in no acute distress. HEAD: Atraumatic, normocephalic. EYES: sclera anicteric, conjunctiva are normal. ENT: nares patent. Moist mucous membranes. NECK: Normal range of motion, supple without lymphadenopathy LUNGS: CTAB and equal. No wheezes rales or rhonchi. HEART: Regular rate and rhythm without murmurs ABDOMEN: Soft, nontender, normal bowel sounds, no guarding. EXTREMITIES: Normal range of motion, no pitting edema. No cyanosis. NEUROLOGICAL: Cranial nerves grossly intact. Normal speech. PSYCH: Normal mood, normal affect. SKIN: Warm, Dry, normal turgor, no rashes or lesions noted Diagnostic Results Laboratory Results: flu, strep negative, covid pending Patient Education/Counseling Counseling/Education: Patient presents with upper respiratory symptoms worrisome for possible Covid 19. Patient does not have emergency worrying symptoms such as difficulty breathing, shortness of breath, chest pain, pressure, confusion or cyanosis. Patient appears suitable for discharge as vital signs are stable and patient is nontoxic in appearance. Good return precautions have been discussed with patient, patient verbalized understanding and is agreeable with discharge plan of care at this time. Guidance for worsening S/SX: As a person under investigation for Covid 19, the [place] department of Health and Human Services, division of public health advises you to adhere to the following guidance until your test results are reported to you. If your test result is positive, you will receive additional information from your provider and your local health department at that time. Remain at home until you are cleared by the health provider or public health authorities. Keep a log of visitors to your home, notify any visitors to your home of your isolation status. If you plan to move to a new address or leave the county, notify the local health department in your County. Call your doctor or seek care if you have an urgent medical need. Before seeking medical care, call ahead to get instructions from the provider before arriving at the medical office clinic or hospital. Notify them that you are being tested for the virus that causes Covid 19 so that arrangements can be made, as necessary, to prevent transmission to others in the healthcare setting. Next, notify the local health department in your county. If a medical emergency arises and you need to call 911, inform the first responders that you are being tested for the virus that causes Covid 19. Next, notify the local health department in your county. RDC Discharge - Discharge Clinical Impression: Encounter for screening laboratory testing for COVID-19 virus URI (upper respiratory infection) Qualifiers: URI type: unspecified URI Qualified Code(s): J06.9 - Acute upper respiratory i nfection, unspecified Condition: Good Disposition: Home; Selfcare
[2020-05-20 10:15] VITALS: BP 127/67
[2020-05-20 11:15] LABS: A TYPE INFLUENZA AG NEGATIVE (NEGATIVE); B INFLUENZA AG NEGATIVE (NEGATIVE)
== END ==
LOC: RDC 09:26
PROVIDERS: ATTEND Registered Nurse
DX: Z20.828 Contact with and (suspected) exposure to other viral communicable diseases (principal)
CPT/HCPCS: 36415; 87070; 87880; 87635; 87804; C9803; 87077

== ENCOUNTER → 2020-06-28 | Outpatient (CLI) | payer BC ==
[2020-06-28 07:46] LABS: ABSOLUTE EOSINOPHILS # (AUTO) 0.1 10^3/uL (0.0-0.6); ABSOLUTE LYMPHOCYTES (AUTO) 1.7 10^3/uL (0.5-4.7); ABSOLUTE MONOCYTES (AUTO) 0.3 10^3/uL (0.1-1.4); ABSOLUTE NEUT (AUTO) 1.4 10^3/uL (1.7-8.2); BASOPHILS % (AUTO) 0.8 % (0-2); EOSINOPHILS % (AUTO) 1.9 % (0-6); HEMATOCRIT 38.1 % (36.0-47.0); HEMOGLOBIN 12.6 g/dL (12.0-15.5); LYMPHOCYTES % (AUTO) 50.4 % (13-45); MEAN CORPUSCULAR HEMOGLOBIN 30.6 pg (27.0-33.4); MEAN CORPUSCULAR VOLUME 93 fl (80-97); MONOCYTES % (AUTO) 7.4 % (3-13); PLATELET COUNT 196 10^3/uL (150-450); RED BLOOD COUNT 4.11 10^6/uL (3.72-5.28); RED CELL DISTRIBUTION WIDTH 13.6 % (11.5-14.0); SEGMENTED NEUTROPHILS % (AUTO) 39.5 % (42-78); TOTAL CELLS COUNTED % (AUTO) 100 %; WHITE BLOOD COUNT 3.4 10^3/uL (4.0-10.5)
[2020-06-28 08:07] LABS: ALBUMIN 3.9 g/dL (3.5-5.0); ALKALINE PHOSPHATASE 54 U/L (38-126); ASPARTATE AMINO TRANSFERASE 34 U/L (14-36); BILIRUBIN,TOTAL 0.6 mg/dL (0.2-1.3); BLOOD UREA NITROGEN 16 mg/dL (7-20); CALCIUM 9.3 mg/dL (8.4-10.2); CARBON DIOXIDE 27 mmol/L (22-30); CHLORIDE 108 mmol/L (98-107); CHOLESTEROL 154.21 mg/dL (0-200); GLUCOSE 97 mg/dL (75-110); POTASSIUM 4.1 mmol/L (3.6-5.0); TOTAL PROTEIN 6.7 g/dL (6.3-8.2); TRIGLYCERIDES 35 mg/dL (<150)
[2020-06-28 08:18] LABS: DIRECT LDL 78 mg/dL (<100)
[2020-06-28 08:23] LABS: ANION GAP 4 (5-19)
== END ==
LOC: LAB 07:25
PROVIDERS: ATTEND Nurse Practitioner Adult Health
DX: I10 Essential (primary) hypertension (principal)
CPT/HCPCS: 36415; 80053; 80061; 85025

== ENCOUNTER → 2020-10-15 | Outpatient (CLI) | payer BC ==
--- NOTE | 2020-10-15 13:31 | EKG REPORT ---
SEVERITY:- BORDERLINE ECG - SINUS RHYTHM PROBABLE LEFT ATRIAL ABNORMALITY : Confirmed by: Anamaria Kelley MD 15-Oct-2020 13:30:53
[2020-10-16 06:37] LABS: HEPATITIS C VIRUS AB <0.1 s/co ratio (0.0-0.9)
== END ==
LOC: OD 07:10
PROVIDERS: ATTEND Internal Medicine Geriatric Medicine
DX: I10 Essential (primary) hypertension (principal); Z11.59 Encounter for screening for other viral diseases
CPT/HCPCS: 36415; 86803; 86804; 93005; 93010

== ENCOUNTER → 2020-12-09 | Outpatient (CLI) | payer BC ==
[~2020-12-09] MED LIST changes: +COVID-19 VACCINE (PFIZER)/PF 30 MCG/0.3 ML VIAL IM ONE; +EPINEPHRINE INJ/PF 1 MG/1 ML AMPULE IM PRN; -PROPOFOL INJ 200 MG/20 ML VIAL IV ONE
[2020-12-09 13:06] VITALS: BP 137/91
== END ==
LOC: EMPHEALTH 11:25
PROVIDERS: ATTEND Internal Medicine
DX: Z23 Encounter for immunization (principal)
CPT/HCPCS: 91300

== ENCOUNTER 2020-12-15 12:25 | Emergency (ER) | payer BC ==
--- NOTE | 2020-12-15 13:18 | ER Document Report ---
ED Medical Screen (RME) - General Chief Complaint: Chest Pain Stated Complaint: CHEST PAIN Time Seen by Provider: 12/15/20 13:12 Mode of Arrival: Ambulatory Information source: Patient TRAVEL OUTSIDE OF THE [place] IN LAST 30 DAYS: No - HPI Patient complains to provider of: Chest pain Notes: 12/15/20 13:17 Patient here with complaints of chest pain. The patient states that for last few days she been having some intermittent left jaw pain and chest pain. She also complains of some tingling down her left arm. She works here as a nurse. She states that she put an N95 mask on and started having increasing chest pain. She denies any chest pain currently but does still complain of some left jaw pain and some tingling in her left arm. She has a history of hypertension. No history of diabetes, high cholesterol, CAD. No recent long trips or surgeries, leg pain or leg swelling, or hormone use, history of DVT or PE. Exam: Nontoxic, no distress. Lungs cardiac throughout. Heart sounds normal. An initial examination was made on the patient as part of the triage process, and it was determined a more comprehensive evaluation was necessary. Initial orders were placed and patient was transferred to another provider in the ED who assumed care and finished evaluation and plan. - Related Data Allergies/Adverse Reactions: No Known Allergies Allergy (Verified 12/15/20 13:09) Home Medications: norvasc 5mg. levoseterizine 2.5mg. flonase. multivitamin Past Medical History - Social History Frequency of alcohol use: Rare Drug Abuse: None - Past Medical History Cardiac Medical History: Reports: Hx Hypertension Denies: Hx Coronary Artery Disease, Hx Heart Attack Pulmonary Medical History: Reports: Hx Asthma - exercise induced Denies: Hx Bronchitis, Hx COPD, Hx Pneumonia Neurological Medical History: Denies: Hx Cerebrovascular Accident, Hx Seizures Renal/ Medical History: Denies: Hx Peritoneal Dialysis Musculoskeltal Medical History: Denies Hx Arthritis - Immunizations Hx Diphtheria, Pertussis, Tetanus Vaccination: Yes Physical Exam - Vital signs Vitals: Temp Pulse Resp BP Pulse Ox 98.4 F 68 16 124/82 100 12/15/20 12:34 12/15/20 12:34 12/15/20 12:34 12/15/20 12:34 12/15/20 12:34 Course - Vital Signs Vital signs: Temp Pulse Resp BP Pulse Ox 98.4 F 68 16 124/82 100 12/15/20 12:34 12/15/20 12:34 12/15/20 12:34 12/15/20 12:34 12/15/20 12:34
--- NOTE | 2020-12-15 13:34 | RADIOLOGY REPORT (SQ) ---
EXAM DESCRIPTION: CHEST 2 VIEWS IMAGES COMPLETED DATE/TIME: 12/15/2020 1:26 pm REASON FOR STUDY: CP COMPARISON: 02/15/2017 EXAM PARAMETERS: NUMBER OF VIEWS: two views TECHNIQUE: Digital Frontal and Lateral radiographic views of the chest acquired. RADIATION DOSE: NA LIMITATIONS: none FINDINGS: LUNGS AND PLEURA: No opacities, masses or pneumothorax. No pleural effusion. MEDIASTINUM AND HILAR STRUCTURES: No masses or contour abnormalities. HEART AND VASCULAR STRUCTURES: Heart normal size. No evidence for failure. BONES: No acute findings. HARDWARE: None in the chest. OTHER: No other significant finding. IMPRESSION: NO ACUTE RADIOGRAPHIC FINDING IN THE CHEST. TECHNICAL DOCUMENTATION: JOB ID: [id number] 2010 [employer]- All Rights Reserved Reading location - IP/workstation name: [email or web address]
[2020-12-15 13:55] LABS: ABSOLUTE EOSINOPHILS # (AUTO) 0.1 10^3/uL (0.0-0.6); ABSOLUTE LYMPHOCYTES (AUTO) 2.8 10^3/uL (0.5-4.7); ABSOLUTE MONOCYTES (AUTO) 0.5 10^3/uL (0.1-1.4); ABSOLUTE NEUT (AUTO) 2.3 10^3/uL (1.7-8.2); BASOPHILS % (AUTO) 0.3 % (0-2); EOSINOPHILS % (AUTO) 1.6 % (0-6); HEMATOCRIT 38.4 % (36.0-47.0); HEMOGLOBIN 13.1 g/dL (12.0-15.5); LYMPHOCYTES % (AUTO) 49.2 % (13-45); MEAN CORPUSCULAR HEMOGLOBIN 30.3 pg (27.0-33.4); MEAN CORPUSCULAR HGB CONC 34.2 g/dL (32.0-36.0); MEAN CORPUSCULAR VOLUME 89 fl (80-97); MONOCYTES % (AUTO) 8.8 % (3-13); PLATELET COUNT 209 10^3/uL (150-450); RED BLOOD COUNT 4.33 10^6/uL (3.72-5.28); RED CELL DISTRIBUTION WIDTH 13.3 % (11.5-14.0); SEGMENTED NEUTROPHILS % (AUTO) 40.1 % (42-78); TOTAL CELLS COUNTED % (AUTO) 100 %; WHITE BLOOD COUNT 5.6 10^3/uL (4.0-10.5)
[2020-12-15 14:25] LABS: ALBUMIN 4.6 g/dL (3.5-5.0); ALKALINE PHOSPHATASE 65 U/L (38-126); ANION GAP 6 (5-19); ASPARTATE AMINO TRANSFERASE 35 U/L (14-36); BILIRUBIN,DIRECT 0.1 mg/dL (0.0-0.4); BILIRUBIN,TOTAL 0.4 mg/dL (0.2-1.3); BLOOD UREA NITROGEN 15 mg/dL (7-20); CALCIUM 10.1 mg/dL (8.4-10.2); CARBON DIOXIDE 31 mmol/L (22-30); CHLORIDE 103 mmol/L (98-107); CREATINE KINASE 162 U/L (30-135); GLUCOSE 93 mg/dL (75-110); POTASSIUM 4.1 mmol/L (3.6-5.0); TOTAL PROTEIN 7.8 g/dL (6.3-8.2)
[2020-12-15 14:45] LABS: CREATINE KINASE MB 0.78 ng/mL (<4.55)
[2020-12-15 14:49] LABS: TROPONIN I < 0.012 ng/mL
--- NOTE | 2020-12-15 15:52 | ER Document Report ---
Entered by ESME CRAMER SCRIBE 12/15/20 1516 Acting as scribe for:ERICKSON BRANHAM MD ED General - General Chief Complaint: Chest Pain Stated Complaint: CHEST PAIN Time Seen by Provider: 12/15/20 13:12 Primary Care Provider: LOKESH NICHOLAS MD [Primary Care Provider] - Follow up as needed Mode of Arrival: Ambulatory Information source: Patient Notes: This 40-year-old female patient presents to the emergency department today with complaints of chest pressure which began on Sunday. Patient reports that she did not think anything of it initially but for the last few days she has been having left arm and neck numbness/tingling as well which concerned her. Patient reports today at work she was putting on an N-95 mask and she developed this chest pain again with associated shortness of breath. Patient had a negative cardiac catheterization approximately 5 years ago. TRAVEL OUTSIDE OF THE [place] IN LAST 30 DAYS: No - Related Data Allergies/Adverse Reactions: No Known Allergies Allergy (Verified 12/15/20 13:09) Home Medications: norvasc 5mg. levoseterizine 2.5mg. flonase. multivitamin Past Medical History - General Information source: Patient - Social History Smoking Status: Never Smoker Cigarette use (# per day): No Frequency of alcohol use: Rare Drug Abuse: None Occupation: [employer] nurse Lives with: Family Family History: Hypertension - Past Medical History Cardiac Medical History: Reports: Hx Hypertension Pulmonary Medical History: Reports: Hx Asthma - exercise induced Surgical Hx: Negative - Immunizations Hx Diphtheria, Pertussis, Tetanus Vaccination: Yes Review of Systems - Review of Systems Constitutional: No symptoms reported EENT: No symptoms reported Cardiovascular: See HPI, Chest pain - with left arm/neck numbness/tingling Respiratory: See HPI, Short of breath Gastrointestinal: No symptoms reported Genitourinary: No symptoms reported Female Genitourinary: No symptoms reported Musculoskeletal: No symptoms reported Skin: No symptoms reported Hematologic/Lymphatic: No symptoms reported Neurological/Psychological: No symptoms reported -: Yes All other systems reviewed and negative Physical Exam - Vital signs Vitals: Temp Pulse Resp BP Pulse Ox 98.4 F 68 16 124/82 100 12/15/20 12:34 12/15/20 12:34 12/15/20 12:34 12/15/20 12:34 12/15/20 12:34 - Notes Notes: Physical Exam: General: Alert, appears well. HEENT: Normocephalic. Atraumatic. PERRL. Extraocular movements intact. Oropharynx clear. Neck: Supple. Non-tender. Respiratory: No respiratory distress. Clear and equal breath sounds bilaterally. Cardiovascular: Regular rate and rhythm. Abdominal: Normal Inspection. Non-tender. No distension. Normal Bowel Sounds. Back: No gross abnormalities. Extremities: Moves all four extremities. Upper extremities: Normal inspection. Normal ROM. Lower extremities: Normal inspection. No edema. Normal ROM. Neurological: Normal cognition. AAOx4. Normal speech. Psychological: Normal affect. Normal Mood. Skin: Warm. Dry. Normal color. Course - Re-evaluation Re-evalutation: 12/15/20 17:09 Patient's EKG is unchanged from one done on 10/15/2020. She has had a negative cardiac catheterization about 5 years ago. She does not have a family history of coronary artery disease in her parents are both alive and well with hypertension. The patient has never been a smoker. The patient does not have hyperlipidemia. When I reviewed the lab work and the lack of objective findings, she stated that she had over the last 30 minutes or more been having numbness and tingling to her lips all around her mouth. I suspect that there is considerable anxiety com ponent. - Vital Signs Vital signs: Temp Pulse Resp BP Pulse Ox 98.4 F 68 21 H 122/78 98 12/15/20 12:34 12/15/20 12:34 12/15/20 17:01 12/15/20 17:01 12/15/20 17:01 - Laboratory Results Result Diagrams: 12/15/20 13:30 12/15/20 13:30 Laboratory Results Interpreted: 12/15/20 12/15/20 13:30 13:30 Lymph % (Auto) 49.2 H Seg Neutrophils % 40.1 L Carbon Dioxide 31 H Est GFR (MDRD) Non-Af 59 L Creatine Kinase 162 H Critical Laboratory Results Reviewed: No Critical Results - Radiology Results Critical Radiology Results Reviewed: No Critical Results Discharge - Discharge Clinical Impression: Chest pain Qualifiers: Chest pain type: unspecified Qualified Code(s): R07.9 - Chest pain, unspecified Condition: Stable Disposition: HOME, SELF-CARE Additional Instructions: Chest Pain of Unclear Cause The exact cause of your chest pain isn't clear. Fortunately, there is no evidence of a dangerous medical condition. Further testing may be required to find the source of the pain. Most often, we find that this pain is coming from the chest wall -- the muscles or rib joints in the chest. But chest pain can come from the lung and lung lining, the esophagus, the heart valves or heart lining, and even the stomach or gallbladder. Rest. Eat lightly until the pain is gone. We may prescribe medicine for pain and inflammation. You should call the physician immediately if the pain radiates to the shoulder, jaw or arms; if you start to run a fever or develop a cough; or if you develop shortness of breath, or other new or alarming symptoms. Follow-up with your primary care provider if you continue to have symptoms. RETURN TO THE EMERGENCY ROOM IF ANY NEW OR WORSENING SYMPTOMS. Referrals: LOKESH NICHOLAS MD [Primary Care Provider] - Follow up as needed I personally performed the services described in the documentation, reviewed and edited the documentation which was dictated to the scribe in my presence, and it accurately records my words and actions.
[2020-12-15 17:38] VITALS: BP 122/78
--- NOTE | 2020-12-15 19:29 | EKG REPORT ---
SEVERITY:- BORDERLINE ECG - SINUS RHYTHM PROBABLE LEFT ATRIAL ABNORMALITY : Confirmed by: Ruddy Appiah MD 15-Dec-2020 19:28:56
== END 2020-12-15 17:38 | disposition home or self-care (01) ==
LOC: ER 12:25
DX: R07.89 Other chest pain (principal); R20.0 Anesthesia of skin; R20.2 Paresthesia of skin; J45.909 Unspecified asthma, uncomplicated; R06.02 Shortness of breath; I10 Essential (primary) hypertension; Z79.899 Other long term (current) drug therapy
CPT/HCPCS: 36415; 71046; 80053; 82550; 82553; 84484; 85025; 93005; 93010; 99285